=== PATIENT | female | born 1990 | race African-American/Black ===

== ENCOUNTER 2017-05-15 18:51 | Emergency (ER) | payer OTHER ==
[~2017-05-15] VITALS: Ht 154.9 cm; Wt 90.7 kg
[~2017-05-15 18:51] MED LIST: METR500T PO
[2017-05-15 19:00] VITALS: BP 139/76
[2017-05-15 19:20] LABS: BILIRUBIN,URINE NEGATIVE (NEG); GLUCOSE,URINE NEGATIVE (NEG); NITRITE,URINE NEGATIVE (NEG); PH,URINE 6.5; PROTEIN,URINE NEGATIVE (NEG-TRACE)
--- NOTE | 2017-05-15 19:27 | PHYS DOC ---
Past Medical History Past Medical History: Asthma Past Surgical History: No Surgical History Alcohol Use: Occasionally Drug Use: None Adult General Chief Complaint Chief Complaint: URINARY FREQUENCY HPI HPI Patient is a 27 year old female presents to the emergency department stating that she has having lower back pain and discomfort and urinary frequency for the last 2 weeks. She also states that she's been having white to clear vaginal discharge that has a fishy odor. She states that she does have a history of bacterial vaginosis, yeast, she also states that she also has history of STDs. Patient states that she has sexually active with one partner denies any use of protection. Denies any fever, chills or any nausea or vomiting. Review of Systems Review of Systems Constitutional: Denies fever or chills [] Eyes: Denies change in visual acuity, redness, or eye pain [] HENT: Denies nasal congestion or sore throat [] Respiratory: Denies cough or shortness of breath [] Cardiovascular: No additional information not addressed in HPI [] GI: Denies abdominal pain, nausea, vomiting, bloody stools or diarrhea [] : dysuria denies hematuria [] Musculoskeletal: Denies back pain or joint pain [] Integument: Denies rash or skin lesions [] Neurologic: Denies headache, focal weakness or sensory changes [] Endocrine: Denies polyuria or polydipsia [] Current Medications Current Medications Current Medications Medications (Trade) Dose Ordered Sig/Soren Start Time Stop Time Status Last Admin Dose Admin Azithromycin (Zithromax) 1,000 mg 1X ONCE 05/15/17 19:30 05/15/17 19:31 DC 05/15/17 19:59 1,000 MG Ceftriaxone Sodium (Rocephin Im) 250 mg 1X ONCE 05/15/17 19:30 05/15/17 19:31 DC 05/15/17 19:59 250 MG Metronidazole (Flagyl) 2,000 mg 1X ONCE 05/15/17 19:30 05/15/17 19:31 DC 05/15/17 19:59 2,000 MG Allergies Allergies Allergies Coded Allergies Type Severity Reaction Last Updated Verified No Known Drug Allergies 07/14/13 No Physical Exam Physical Exam Constitutional: Well developed, well nourished, no acute distress, non-toxic appearance. [] HENT: Normocephalic, atraumatic, bilateral external ears normal, oropharynx moist, no oral exudates, nose normal. [] Eyes: PERRLA, EOMI, conjunctiva normal, no discharge. [] Neck: Normal range of motion, no tenderness, supple, no stridor. [] Cardiovascular:Heart rate regular rhythm, no murmur [] Lungs & Thorax: Bilateral breath sounds clear to auscultation [] Skin: Warm, dry, no erythema, no rash. [] Back: No tenderness, no CVA tenderness. [] Extremities: No tenderness, no cyanosis, no clubbing, ROM intact, no edema. [] Neurologic: Alert and oriented X 3, normal motor function, normal sensory function, no focal deficits noted. [] Psychologic: Affect normal, judgement normal, mood normal. [] Vaginal exam was completed with my, RN at bedside. Patient with white discharge noted, manual exam with right adnexal tenderness, no CMT tenderness, no tenderness noted in the left adnexal. Current Patient Data Vital Signs Vital Signs Date Time Temp Pulse Resp B/P (MAP) Pulse Ox O2 Delivery O2 Flow Rate FiO2 05/15/17 19:00 98.1 81 20 98 Room Air 98.1 Lab Values Laboratory Tests Test 05/15/17 19:00 05/15/17 19:12 Urine Collection Type Unknown Urine Color Yellow Urine Clarity Clear Urine pH 6.5 Urine Specific [place] >=1.030 Urine Protein Negative mg/dL (NEG-TRACE) Urine Glucose (UA) Negative mg/dL (NEG) Urine Ketones (Stick) Negative mg/dL (NEG) Urine Blood Negative (NEG) Urine Nitrite Negative (NEG) Urine Bilirubin Negative (NEG) Urine Urobilinogen Dipstick 1.0 mg/dL (0.2 mg/dL) Urine Leukocyte Esterase Small (NEG) Urine RBC Occ /HPF (0-2) Urine WBC 5-10 /HPF (0-4) Urine Squamous Epithelial Cells Mod /LPF Urine Bacteria Few /HPF (0-FEW) Urine Hyaline Casts Many /HPF Urine Mucus Slight /LPF POC Urine HCG, Qualitative Hcg negative (Negative) Microbiology 05/15/17 Wet Prep - Final, Complete EKG EKG [] Radiology/Procedures Radiology/Procedures [] Course & Med Decision Making Course & Med Decision Making Pertinent Labs and Imaging studies reviewed. (See chart for details) Urine was positive for UTI, patients wet prep positive for BV. Patient will be discharged home in stable condition. She'll be provided with Flagyl for bacterial vaginosis and Macrobid for her urinary tract infection. Recommended plenty of fluids such as water and cranberry juice. Recommended she avoid cranberry juice cocktail, carbonate beverages, citrus fruits, alcohol, and caffeine as these are considered irritants to the bladder. Recommended following up with a primary care physician in the next 7-10 days to make sure she is cleared the urinary tract infection. Patient agrees with discharge instructions, treatment regimens and follow-up recommendations. All questions and concerns been answered at the patient's bedside. [] Dragon Disclaimer Dragon Disclaimer This electronic medical record was generated, in whole or in part, using a voice recognition dictation system. Departure Departure Impression: Primary Impression: Bacterial vaginosis Additional Impression: Urinary tract infection Disposition: 01 HOME, SELF-CARE Condition: STABLE Referrals: NO PCP (PCP) Patient Instructions: Bacterial Vaginosis, [id number], Urinary Tract Infection, [id number] Additional Instructions: Urine was positive for urinary tract infection. Your wet prep was positive for bacterial vaginosis. Your further cultures will be back in approximately 2-3 days. He'll be notified if they are positive. You have however been treated for potential infections. Activity as tolerated. Medications as prescribed Do not drink alcohol with the Flagyl as this will cause you to have an abdominal pain and discomfort. Drink plenty of fluids such as water and cranberry juice. Avoid cranberry juice cocktail, carbonate beverages, citrus fruits, alcohol, caffeine, as these are considered irritants to the bladder. Follow-up with primary care physician in the next 7-10 days to make sure you cleared the urinary tract infection. Return back to emergency prior signs symptoms of become worse. Scripts Metronidazole (FLAGYL) 500 Mg Tablet 1 TAB PO BID, #14 TAB Prov: CHINYERE PHILLIPS APRN 05/15/17 Nitrofurantoin Monohyd/M-Cryst (MACROBID 100 MG CAPSULE) 100 Mg Capsule 1 CAP PO BID, #14 CAP Prov: CHINYERE PHILLIPS APRN 05/15/17 Problem Qualifiers Additional Impression: Urinary tract infection Urinary tract infection type: site unspecified Hematuria presence: without hematuria Qualified Codes: N39.0 - Urinary tract infection, site not specified CHINYERE PHILLIPS APRN May 15, 2017 19:26
[2017-05-15] MEDS ORDERED: metroNIDAZOLE 500 MG TABLET PO ONE (19:30)
[2017-05-15] MEDS ORDERED: cefTRIAXone IM 250 MG VIAL IM ONE (19:30)
[2017-05-15] MEDS ORDERED: AZITHROMYCIN 250 MG TABLET. PO ONE (19:30)
[2017-05-15 19:47] LABS: BACTERIA,URINE FEW /HPF (0-FEW); RBC,URINE OCC /HPF (0-2); SQUAMOUS EPITHELIAL CELL,UR MOD /LPF
[2017-05-15] MEDS ORDERED: NITR100C62 PO (20:11)
[2017-05-15] MEDS ORDERED: METR500T PO (20:11)
== END 2017-05-15 20:24 | disposition home or self-care (01) ==
LOC: ER 18:51
DX: N76.0 Acute vaginitis (principal); N39.0 Urinary tract infection, site not specified; J45.909 Unspecified asthma, uncomplicated
CPT/HCPCS: 81001; 81025; 87086; 87491; 87591; 96372; 99284; J0696; Q0111; Q0144

== ENCOUNTER 2017-09-13 16:53 | Emergency (ER) | payer OTHER, SELFPAY ==
[2017-09-13 17:22] LABS: URINE HCG POC HCG NEGATIVE (Negative)
[2017-09-13 17:38] LABS: BILIRUBIN,URINE NEGATIVE (NEG); CLARITY,URINE CLOUDY; COLOR,URINE YELLOW; GLUCOSE,URINE NEGATIVE (NEG); NITRITE,URINE NEGATIVE (NEG); PH,URINE 6.5; PROTEIN,URINE NEGATIVE (NEG-TRACE)
[2017-09-13 17:47] LABS: BACTERIA,URINE MANY /HPF (0-FEW); RBC,URINE 0 /HPF (0-2); SQUAMOUS EPITHELIAL CELL,UR MANY /LPF
[2017-09-13] MEDS: cefTRIAXone IM 250 MG VIAL IM ×2 (17:57)
[2017-09-13] MEDS: AZITHROMYCIN 250 MG TABLET. PO ×2 (17:57)
[2017-09-14 15:29] LABS: CHLAMYDIA PROBE Negative (Negative); GC PROBE Negative (Negative)
== END 2017-09-13 19:06 | disposition home or self-care (01) ==
LOC: ER 16:53
DX: N76.0 Acute vaginitis (principal); B96.89 Other specified bacterial agents as the cause of diseases classified elsewhere; J45.909 Unspecified asthma, uncomplicated
CPT/HCPCS: 81001; 81025; 87086; 87491; 87591; 96372; 99284; J0696; Q0111; Q0144

== ENCOUNTER 2018-02-24 00:01 | Emergency (ER) | payer OTHER | END 2018-02-24 03:19 | disposition home or self-care (01) | LOC: ER 00:01 | DX: S60.222A Contusion of left hand, initial encounter (principal); M25.531 Pain in right wrist; J45.909 Unspecified asthma, uncomplicated; W22.01XA Walked into wall, initial encounter; Y93.89 Activity, other specified; Y99.8 Other external cause status; Y92.89 Other specified places as the place of occurrence of the external cause | CPT/HCPCS: 73090; 73130; 99284 ==

== ENCOUNTER 2018-07-31 09:41 | Emergency (ER) | payer OTHER ==
[~2018-07-31] VITALS: Ht 154.9 cm; Wt 102.5 kg
[~2018-07-31 09:41] MED LIST changes: +DICL50TA4 PO; +NITR100C62 PO
[2018-07-31 09:45] VITALS: BP 131/83
--- NOTE | 2018-07-31 10:22 | PHYS DOC ---
Past Medical History Past Medical History: Asthma, UTI Additional Past Medical Histor: BV Past Surgical History: No Surgical History Alcohol Use: Occasionally Drug Use: None Adult General Chief Complaint Chief Complaint: SORE THROAT HPI HPI Patient is a 28 year old female presenting with upper respiratory symptoms she has had a cough sinus congestion occasional yellow sputum sore throat subjective fever for the last 3-4 days. Also he she checked in with her 10-year- old and 4-year-old who have identical symptoms pretty much. Using Tylenol with some relief. Symptoms are getting worse so she is signing to come in to the emergency room. Review of Systems Review of Systems Constitutional: Eyes: Denies change in visual acuity, redness, or eye pain [] Cardiovascular: No additional information not addressed in HPI [] GI: Denies abdominal pain, nausea, vomiting, bloody stools or diarrhea [] : Denies dysuria or hematuria [] Musculoskeletal: Denies back pain or joint pain [] Integument: Denies rash or skin lesions [] Neurologic: Denies headache, focal weakness or sensory changes [] Endocrine: Denies polyuria or polydipsia [] All other systems were reviewed and found to be within normal limits, except as documented in this note. Allergies Allergies Allergies Coded Allergies Type Severity Reaction Last Updated Verified No Known Drug Allergies 07/14/13 No Physical Exam Physical Exam Constitutional: Well developed, well nourished, no acute distress, non-toxic appearance. [] HENT: Normocephalic, atraumatic, bilateral external ears normal, oropharynx moist, no oral exudates, nose normal. []No lymphadenopathy Eyes: PERRLA, EOMI, conjunctiva normal, no discharge. [] Neck: Normal range of motion, no tenderness, supple, no stridor. [] Cardiovascular:Heart rate regular rhythm, no murmur [] Lungs & Thorax: Decreased bibasilar breath sounds no overt wheezing Abdomen: Bowel sounds normal, soft, no tenderness, no masses, no pulsatile masses. [] Skin: Warm, dry, no erythema, no rash. [] Back: No tenderness, no CVA tenderness. [] Extremities: No tenderness, no cyanosis, no clubbing, ROM intact, no edema. [] Neurologic: Alert and oriented X 3, normal motor function, normal sensory function, no focal deficits noted. [] Psychologic: Affect normal, judgement normal, mood normal. [] Current Patient Data Vital Signs Vital Signs Date Time Temp Pulse Resp B/P (MAP) Pulse Ox O2 Delivery O2 Flow Rate FiO2 07/31/18 09:45 98.3 85 16 131/83 (99) 99 Room Air 98.3 Lab Values Laboratory Tests Test 07/31/18 10:28 Influenza Type A Antigen Negative (NEGATIVE) Influenza Type B Antigen Negative (NEGATIVE) EKG EKG [] Radiology/Procedures Radiology/Procedures [] Course & Med Decision Making Course & Med Decision Making Pertinent Labs and Imaging studies reviewed. (See chart for details) []Upper respiratory infection vitals normal rule out strep and flu. Given sick contacts. Recommended conservative management [id number] agents should resolve spontaneously. Strep and flu negative Dragon Disclaimer Dragon Disclaimer This electronic medical record was generated, in whole or in part, using a voice recognition dictation system. Departure Departure Impression: Primary Impression: Upper respiratory infection Disposition: HOME, SELF-CARE Condition: STABLE Patient Instructions: Upper Respiratory Infection, Adult JACI RAMOS MD Jul 31, 2018 10:22
[2018-07-31 11:19] LABS: INFLUENZA A PATIENT NEGATIVE (NEGATIVE); INFLUENZA B PATIENT NEGATIVE (NEGATIVE)
== END 2018-07-31 11:41 | disposition home or self-care (01) ==
LOC: ER 09:41
DX: J06.9 Acute upper respiratory infection, unspecified (principal); J45.909 Unspecified asthma, uncomplicated
CPT/HCPCS: 87070; 87804; 87880; 99283

== ENCOUNTER 2018-08-18 19:47 | Emergency (ER) | payer SELFPAY ==
[~2018-08-18] VITALS: Ht 154.9 cm; Wt 99.8 kg
[2018-08-18 20:20] VITALS: BP 135/71
[2018-08-18 20:20] LABS: BILIRUBIN,URINE NEGATIVE (NEG); CLARITY,URINE CLOUDY; COLOR,URINE YELLOW; NITRITE,URINE NEGATIVE (NEG); PROTEIN,URINE NEGATIVE (NEG-TRACE)
--- NOTE | 2018-08-18 20:28 | PHYS DOC ---
Past Medical History Past Medical History: Asthma, UTI Additional Past Medical Histor: BV Past Surgical History: No Surgical History Alcohol Use: Occasionally Drug Use: None Adult General Chief Complaint Chief Complaint: PELVIC PAIN HPI HPI Patient is a 28 year old female who presents with pelvic pain when she is holding her urine too long. 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 She states that she has a foul smelling white discharge. She has a history of STDs and she states there is a chance that she has STD. Patient states that she does a have a mirena IUD. Review of Systems Review of Systems Constitutional: Denies fever or chills [] Eyes: Denies change in visual acuity, redness, or eye pain [] HENT: Denies nasal congestion or sore throat [] Respiratory: Denies cough or shortness of breath [] Cardiovascular: No additional information not addressed in HPI [] GI: Denies abdominal pain, nausea, vomiting, bloody stools or diarrhea. Pelvic pain and white vaginal discharge. [] : Denies dysuria or hematuria [] Musculoskeletal: Denies back pain or joint pain [] Integument: Denies rash or skin lesions [] Neurologic: Denies headache, focal weakness or sensory changes [] All other systems were reviewed and found to be within normal limits, except as documented in this note. Current Medications Current Medications Current Medications Medications (Trade) Dose Ordered Sig/Soren Start Time Stop Time Status Last Admin Dose Admin Azithromycin (Zithromax) 1,000 mg 1X ONCE 08/18/18 20:30 08/18/18 20:31 DC 08/18/18 20:38 1,000 MG Ceftriaxone Sodium (Rocephin Im) 250 mg 1X ONCE 08/18/18 20:30 08/18/18 20:31 DC 08/18/18 20:37 250 MG Sodium Chloride 500 ml @ 500 mls/hr 1X ONCE 08/18/18 22:00 08/18/18 22:59 Cancel Allergies Allergies Allergies Coded Allergies Type Severity Reaction Last Updated Verified No Known Drug Allergies 07/14/13 No Physical Exam Physical Exam Constitutional: Well developed, well nourished, no acute distress, non-toxic appearance. [] HENT: Normocephalic, atraumatic, bilateral external ears normal, oropharynx moist, no oral exudates, nose normal. [] Eyes: PERRLA, EOMI, conjunctiva normal, no discharge. [] Neck: Normal range of motion, no tenderness, supple, no stridor. [] Cardiovascular:Heart rate regular rhythm, no murmur [] Lungs & Thorax: Bilateral breath sounds clear to auscultation [] Abdomen: Bowel sounds normal, soft, Left lower tenderness, no masses, no pulsatile masses. [] Skin: Warm, dry, no erythema, no rash. [] Back: No tenderness, no CVA tenderness. [] Extremities: No tenderness, no cyanosis, no clubbing, ROM intact, no edema. [] Neurologic: Alert and oriented X 3, normal motor function, normal sensory function, no focal deficits noted. [] Psychologic: Affect normal, judgement normal, mood normal. [] Current Patient Data Vital Signs Vital Signs Date Time Temp Pulse Resp B/P (MAP) Pulse Ox O2 Delivery O2 Flow Rate FiO2 08/18/18 20:20 98.5 89 20 135/71 (92) 96 Room Air 98.5 Lab Values Laboratory Tests Test 08/18/18 19:58 08/18/18 20:13 Urine Collection Type Unknown Urine Color Yellow Urine Clarity Cloudy Urine pH 6.0 Urine Specific [place] >=1.030 Urine Protein Negative mg/dL (NEG-TRACE) Urine Glucose (UA) Negative mg/dL (NEG) Urine Ketones (Stick) Negative mg/dL (NEG) Urine Blood Negative (NEG) Urine Nitrite Negative (NEG) Urine Bilirubin Negative (NEG) Urine Urobilinogen Dipstick 1.0 mg/dL (0.2 mg/dL) Urine Leukocyte Esterase Small (NEG) Urine RBC 0 /HPF (0-2) Urine WBC 1-4 /HPF (0-4) Urine Squamous Epithelial Cells Many /LPF Urine Bacteria Moderate /HPF (0-FEW) Urine Mucus Marked /LPF POC Urine HCG, Qualitative Hcg negative (Negative) Microbiology 08/18/18 Wet Prep - Final, Complete EKG EKG [] Radiology/Procedures Radiology/Procedures Pelvis US Impressions: [facility] [address] [place] [address] IMAGING REPORT Signed PATIENT: LISA FREITAS ACCOUNT: [id number] : 1990 LOCATION: ER AGE: 28 SEX: F EXAM STATUS: REG ER ORD. PHYSICIAN: CHINYERE BARRERA APRN REASON: PELVIC PAIN PROCEDURE: TRANSVAGINAL EXAM: PELVIC ULTRASOUND. HISTORY: Left pelvic pain. COMPARISON: None. FINDINGS: Sonographic evaluation of the pelvis was performed transvaginally. The uterus is anteverted and measures 10.8 x 4.7 x 4.4 cm. The endometrial stripe measures 7 mm. And intrauterine device is within the endocervical canal. No masses are identified. There is no significant free fluid. The right ovary measures 3.5 x 1.2 x 1.1 cm. The left ovary measures 3.1 x 1.6 x 1.5 cm. There is normal Doppler flow bilaterally. There are no suspicious lesions. IMPRESSION: 1. Intrauterine device in the endocervical canal. Otherwise unremarkable examination of the pelvis. Electronically signed by: Syl Villeda MD (08/18/2018 9:51 PM) [facility] DICTATED and SIGNED BY: CHARITY VILLEDA MD DATE: 08/18/182148 Course & Med Decision Making Course & Med Decision Making Patient is a 28 year old female who presents with pelvic pain when she is holding her urine too long. 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 She states that she has a foul smelling white discharge. She has a history of STDs and she states there is a chance that she has STD. Patient states that she does a have a Mirena IUD. Patient states she has no pain at this time. Alert and oriented. Walks with steady gait. Skin pink warm and dry. Afebrile. Nausea, vomiting, diarrhea, fever. Abdomen and is soft and only tender at left lower abdomen. No masses are felt. Patient is treated prophylactically for STD's. GC/CHLAM culture is sent to lab. Negative urine . Wet mount shows bacterial vaginosis. US PELVIS shows no acute findings. Patient should follow up with her Academic Specialist or primary care tomorrow for continuation of care. Pelvic Exam: Manga Artist present Abdomen: Left lower External Genitalia: Normal Skin Speculum: Normal vaginal mucosa, White cervical discharge Bimanual: No adnexal masses or tenderness, No CMT Dragon Disclaimer Dragon Disclaimer This electronic medical record was generated, in whole or in part, using a voice recognition dictation system. Departure Departure Impression: Primary Impression: Bacterial vaginosis Additional Impression: Concern about STD in female without diagnosis Disposition: 01 HOME, SELF-CARE Condition: STABLE Referrals: NO PCP (PCP) HERNANDO MICHAEL Jr, MD Patient Instructions: Bacterial Vaginosis, Sexually Transmitted Disease Additional Instructions: FOLLOW UP WITH YOUR PRIMARY CARE. TAKE MEDICATIONS PRESCRIBED. Scripts Metronidazole (METRONIDAZOLE) 500 Mg Tablet 1 TAB PO BID for 7 Days, #14 TAB Prov: CHINYERE BARRERA APRN 08/18/18 Problem Qualifiers CHINYERE BARRERA APRN Aug 18, 2018 20:28
[2018-08-18] MEDS ORDERED: cefTRIAXone IM 250 MG VIAL IM ONE (20:30)
[2018-08-18] MEDS ORDERED: AZITHROMYCIN 250 MG TABLET. PO ONE (20:30)
[2018-08-18 20:37] LABS: BACTERIA,URINE MODERATE /HPF (0-FEW); RBC,URINE 0 /HPF (0-2); SQUAMOUS EPITHELIAL CELL,UR MANY /LPF
[2018-08-18] MEDS ORDERED: METR-84 PO (20:42)
--- NOTE | 2018-08-18 21:55 | RAD ---
EXAM: PELVIC ULTRASOUND. HISTORY: Left pelvic pain. COMPARISON: None. FINDINGS: Sonographic evaluation of the pelvis was performed transvaginally. The uterus is anteverted and measures 10.8 x 4.7 x 4.4 cm. The endometrial stripe measures 7 mm. And intrauterine device is within the endocervical canal. No masses are identified. There is no significant free fluid. The right ovary measures 3.5 x 1.2 x 1.1 cm. The left ovary measures 3.1 x 1.6 x 1.5 cm. There is normal Doppler flow bilaterally. There are no suspicious lesions. IMPRESSION: 1. Intrauterine device in the endocervical canal. Otherwise unremarkable examination of the pelvis. Electronically signed by: Syl Villeda MD (08/18/2018 9:51 PM) [facility]
[2018-08-18] MEDS ORDERED: IV NORMAL SALINE 500ML BAG 500 ML IV ONE (22:00)
[2018-08-20 13:23] LABS: GC PROBE Negative (Negative)
== END 2018-08-18 22:16 | disposition home or self-care (01) ==
LOC: ER 19:47
DX: N76.0 Acute vaginitis (principal); J45.909 Unspecified asthma, uncomplicated
CPT/HCPCS: 76830; 81001; 81025; 87086; 87491; 87591; 96372; 99284; J0696; Q0111; Q0144

== ENCOUNTER 2018-10-28 09:57 | Emergency (ER) | payer MEDICAID ==
[~2018-10-28] VITALS: Ht 154.9 cm; Wt 99.8 kg
[~2018-10-28 09:57] MED LIST changes: +METR-34 PO
[2018-10-28 10:05] VITALS: BP 135/70
--- NOTE | 2018-10-28 10:26 | PHYS DOC ---
Past Medical History Past Medical History: Asthma, UTI Additional Past Medical Histor: BV Past Surgical History: No Surgical History Alcohol Use: Occasionally Drug Use: None Adult General Chief Complaint Chief Complaint: ABDOMINAL PAIN HPI HPI Patient is a 28-year-old female who presents to the emergency department for evaluation of 2-1/2 weeks of pelvic discomfort, along with some whitish vaginal discharge. She is uncertain about her exposure to STDs. She denies any dysuria, or any other abdominal pain. She has not had any vomiting or diarrhea. Her LMP was about 2 and half weeks ago and she does not think she is as she uses control. She has no other complaints at this time. She has not had any fevers or chills. There are no alleviating or exacerbating factors to her symptoms otherwise. Review of Systems Review of Systems Constitutional: Denies fever or chills [] Eyes: Denies change in visual acuity, redness, or eye pain [] HENT: Denies nasal congestion or sore throat [] Respiratory: Denies cough or shortness of breath [] GI: Denies abdominal pain, nausea, vomiting, bloody stools or diarrhea [] : No additional information not addressed in HPI [] Musculoskeletal: Denies back pain or joint pain [] Integument: Denies rash or skin lesions [] Neurologic: Denies headache, focal weakness or sensory changes [] Endocrine: Denies polyuria or polydipsia [] Allergies Allergies Allergies Coded Allergies Type Severity Reaction Last Updated Verified No Known Drug Allergies 07/14/13 No Physical Exam Physical Exam PHYSICAL EXAM: CONSTITUTIONAL: Well developed, well nourished HEAD: normocephalic, atraumatic EENT: PERRL, EOMI. Conjunctivae normal color, sclerae non-icteric; moist mucous membranes. NECK: Supple, non-tender; no meningismus. LUNGS: Lungs CTA, breathing even and unlabored. Normal air movement. HEART: Regular rate and rhythm, no murmur CHEST: No deformity; non-tender ABDOMEN: The abdomen is soft, and non-tender, no masses or bruits. There is mild suprapubic tenderness to palpation. EXTREM: Normal ROM; no deformity, no calf tenderness. Normal pulses palpable in all extremities. There is no pedal edema. SKIN: No rash; no diaphoresis NEURO: Alert; normal speech and cognition; CN's grossly intact; strength grossly intact without focal deficit. BACK: No CVA TTP. PELVIC EXAM: Normal external genitalia. There is a small amount of thin, frothy white vaginal discharge. There is no cervical motion tenderness, or vaginal bleeding. There is mild diffuse pelvic tenderness to palpation. There is no adnexal mass or focal adnexal tenderness to palpation. Exam was performed in the presence of the patient's nurse, Tarsha. Current Patient Data Vital Signs Vital Signs Date Time Temp Pulse Resp B/P (MAP) Pulse Ox O2 Delivery O2 Flow Rate FiO2 10/28/18 10:05 98.1 79 16 135/70 (91) 98 Room Air 98.1 Lab Values Laboratory Tests Test 10/28/18 10:47 10/28/18 10:49 Urine Collection Type Void Urine Color Yellow Urine Clarity Clear Urine pH 5.5 Urine Specific [place] 1.025 Urine Protein Negative mg/dL (NEG-TRACE) Urine Glucose (UA) Negative mg/dL (NEG) Urine Ketones (Stick) Negative mg/dL (NEG) Urine Blood Negative (NEG) Urine Nitrite Negative (NEG) Urine Bilirubin Negative (NEG) Urine Urobilinogen Dipstick 0.2 mg/dL (0.2 mg/dL) Urine Leukocyte Esterase Negative (NEG) Urine RBC Occ /HPF (0-2) Urine WBC Occ /HPF (0-4) Urine Squamous Epithelial Cells Few /LPF Urine Bacteria 0 /HPF (0-FEW) Urine Mucus Marked /LPF POC Urine HCG, Qualitative Hcg negative (Negative) Microbiology 10/28/18 Wet Prep - Final, Complete EKG EKG [] Radiology/Procedures Radiology/Procedures [] Course & Med Decision Making Course & Med Decision Making Pertinent Lab studies reviewed. (See chart for details) [ WET PREP Final YEAST NONE SEEN TRICHOMONAS NONE SEEN CLUE CELLS CLUE CELLS PRESENT ALTERED GURPREET ALTERED GURPREET PRESENT SUGGESTIVE OF BACTERIAL VAGINOSIS WBCS MANY SQUAMOUS EPS MANY] 11:50 AM: The patient's condition remains stable. Her exam is suggestive of bacterial vaginosis. I will treat her for such, and I discussed the pending STD testing, the need for close follow-up, and return precautions. I will not treat her empirically for STDs at this time. Dragon Disclaimer Dragon Disclaimer This electronic medical record was generated, in whole or in part, using a voice recognition dictation system. Departure Departure Impression: Primary Impression: Bacterial vaginosis Disposition: HOME, SELF-CARE Condition: STABLE Referrals: HERNANDO MICHAEL Jr, MD Patient Instructions: Bacterial Vaginosis Scripts Metronidazole (FLAGYL) 500 Mg Tablet 1 TAB PO BID, #14 TAB Prov: ALANA CHRISTINE MD 10/28/18 ALANA CHRISTINE MD Oct 28, 2018 10:26
[2018-10-28 11:01] LABS: BILIRUBIN,URINE NEGATIVE (NEG); CLARITY,URINE CLEAR; COLOR,URINE YELLOW; NITRITE,URINE NEGATIVE (NEG); PH,URINE 5.5; PROTEIN,URINE NEGATIVE (NEG-TRACE); UROBILINOGEN,URINE 0.2 mg/dL (0.2 mg/dL)
[2018-10-28 11:21] LABS: BACTERIA,URINE 0 /HPF (0-FEW); RBC,URINE OCC /HPF (0-2); WBC,URINE OCC /HPF (0-4)
[2018-10-28 11:22] LABS: SQUAMOUS EPITHELIAL CELL,UR FEW /LPF
[2018-10-28] MEDS ORDERED: METR500T PO (11:53)
[2018-10-29 14:48] LABS: GC PROBE Negative (Negative)
== END 2018-10-28 11:59 | disposition home or self-care (01) ==
LOC: ER 09:57
DX: N76.0 Acute vaginitis (principal); B96.89 Other specified bacterial agents as the cause of diseases classified elsewhere; J45.909 Unspecified asthma, uncomplicated; Z87.440 Personal history of urinary (tract) infections
CPT/HCPCS: 81001; 81025; 87491; 87591; 99283; Q0111

== ENCOUNTER 2020-01-14 09:50 | Emergency (ER) | payer MEDICAID ==
[~2020-01-14] VITALS: Ht 154.9 cm; Wt 100.0 kg
[2020-01-14 10:09] VITALS: BP 149/77
--- NOTE | 2020-01-14 10:18 | PHYS DOC ---
Past Medical History Past Medical History: Asthma, UTI Additional Past Medical Histor: BV Past Surgical History: No Surgical History Smoking Status: Never Smoker Alcohol Use: Occasionally Drug Use: None General Adult EDM: Chief Complaint: SEXUALLY TRANSMITTED DISEASE HPI: HPI: 29-year-old asymptomatic female with a history of bacterial vaginosis states she was sexually intimate with a male who told her he had either chlamydia or gonorrhea. Again she has had no vaginal discharge she denies any dysuria she denies dyspareunia no fever chills or sweats. She would really like to be treated today. [] Review of Systems: Review of Systems: Constitutional: Denies fever or chills. [] Eyes: Denies change in visual acuity. [] HENT: Denies nasal congestion or sore throat. [] Respiratory: Denies cough or shortness of breath. [] Cardiovascular: Denies chest pain or edema. [] GI: Denies abdominal pain, nausea, vomiting, bloody stools or diarrhea. [] : Per HPI [] Musculoskeletal: Denies back pain or joint pain. [] Integument: Denies rash. [] Neurologic: Denies headache, focal weakness or sensory changes. [] Endocrine: Denies polyuria or polydipsia. [] Lymphatic: Denies swollen glands. [] Psychiatric: Denies depression or anxiety. [] Heart Score: Risk Factors: Risk Factors: DM, Current or recent (<one month) smoker, HTN, HLP, family history of CAD, obesity. Risk Scores: Score 0 - 3: 2.5% MACE over next 6 weeks - Discharge Home Score 4 - 6: 20.3% MACE over next 6 weeks - Admit for Clinical Observation Score 7 - 10: 72.7% MACE over next 6 weeks - Early Invasive Strategies Allergies: Allergies: Allergies Coded Allergies Type Severity Reaction Last Updated Verified No Known Drug Allergies 07/14/13 No Physical Exam: PE: Constitutional: Well developed, well nourished, no acute distress, non-toxic appearance. [] HENT: Normocephalic, atraumatic, bilateral external ears normal, oropharynx moist, no oral exudates, nose normal. [] Eyes: PERRLA, EOMI, conjunctiva normal, no discharge. [] Neck: Normal range of motion, no tenderness, supple, no stridor. [] Cardiovascular:Heart rate regular rhythm, no murmur [] Lungs & Thorax: Bilateral breath sounds clear to auscultation [] Abdomen: Bowel sounds normal, soft, no tenderness, no masses, no pulsatile masses. [] Skin: Warm, dry, no erythema, no rash. [] Back: No tenderness, no CVA tenderness. [] Extremities: No tenderness, no cyanosis, no clubbing, ROM intact, no edema. [] Neurologic: Alert and oriented X 3, normal motor function, normal sensory function, no focal deficits noted. [] Psychologic: Affect normal, judgement normal, mood normal. [] Current Patient Data: Vital Signs: Vital Signs Date Time Temp Pulse Resp B/P (MAP) Pulse Ox O2 Delivery O2 Flow Rate FiO2 01/14/20 10:09 98.5 98 16 149/77 (101) 97 Room Air 98.5 EKG: EKG: [] Radiology/Procedures: Radiology/Procedures: [] Course & Med Decision Making: Course & Med Decision Making Pertinent Labs and Imaging studies reviewed. (See chart for details) [] Dragon Disclaimer: Dragon Disclaimer: This electronic medical record was generated, in whole or in part, using a voice recognition dictation system. Departure Departure Impression: Primary Impression: Concern about STD in female without diagnosis Disposition: 02 TRANSFER [facility] HOS[facility] Condition: STABLE Referrals: NO PCP (PCP) Patient Instructions: Sexually Transmitted Disease Additional Instructions: Return if symptoms develop. KRISTA RAMIREZ DO Jan 14, 2020 10:18
[2020-01-14] MEDS ORDERED: metroNIDAZOLE 500 MG TABLET PO ONE (10:30)
[2020-01-14] MEDS ORDERED: AZITHROMYCIN 250 MG TABLET. PO ONE (10:30)
[2020-01-14] MEDS ORDERED: cefTRIAXone IM 250 MG VIAL IM ONE (10:30)
== END 2020-01-14 11:02 | disposition home or self-care (01) ==
LOC: ER 09:50
DX: Z20.2 Contact with and (suspected) exposure to infections with a predominantly sexual mode of transmission (principal); J45.909 Unspecified asthma, uncomplicated; Z87.440 Personal history of urinary (tract) infections
CPT/HCPCS: 96372; 99283; J0696